=== PATIENT | male | born 1970 | race Two or more races ===

== ENCOUNTER → 2018-04-21 | Outpatient (CLI) | payer MEDICAID ==
[~2018-04-21] VITALS: Ht 167.6 cm; Wt 72.0 kg
[~2018-04-21] MED LIST: METF500T6 PO
[2018-04-21 08:15] VITALS: BP 133/83
== END | disposition home or self-care (01) ==
LOC: HBOWC 07:33
PROVIDERS: ATTEND Nurse Practitioner Adult Health
DX: E11.622 Type 2 diabetes mellitus with other skin ulcer (principal); L89.154 Pressure ulcer of sacral region, stage 4; L98.491 Non-pressure chronic ulcer of skin of other sites limited to breakdown of skin; G82.20 Paraplegia, unspecified